=== PATIENT | female | born 1935 | race Caucasian/White ===

== ENCOUNTER 2017-03-17 16:09 | Emergency (ER) | payer MEDICARE ==
[~2017-03-17] VITALS: Ht 165.1 cm; Wt 83.9 kg
--- OUTSIDE RECORDS SUMMARY | ~2017-03-17 | XMS ---
Demographics + + + | Address | [address] | | | [address] | | | [place] [address] | + + + | Preferred Language | Unknown | + + + | Marital Status | Unknown | + + + | Bahai Affiliation | Unknown | + + + | Race | Unknown | + + + | Ethnic Group | Unknown | + + + Author + + + | Author | [facility] | + + + | Organization | [facility] | + + + | Address | 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 | | | | | | | | NOS | | | | | | +---------+ + + +--------+ + + | Problem | Other | 719.91 | | | Active | [id number] | | | specified | | | | | | | | disorder | | | | | | | | of joint | | | | | | | | NOS, | | | | | | | | shoulder | | | | | | +---------+ + + +--------+ + + | Problem | CAD | 414.00 | | | Active | [id number] | | | (coronary | | | | | | | | artery | | | | | | | | disease) | | | | | | +---------+ + + +--------+ + + | Problem | UTI (lower | 599.0 | | | Active | [id number] | | | urinary | | | | | | | | tract | | | | | | | | infection) | | | | | | +---------+ + + +--------+ + + | Problem | HTN | 401.9 | | | Active | [id number] | +---------+ + + +--------+ + + | Problem | CAD, | 414.01 | | | Active | [id number] | | | CORONARY | | | | | 107 | | | ART. 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
[~2017-03-17 16:09] MED LIST: ALLOPURINOL100 MG PO; ASPIRIN EC81 MG PO; ATENOLOL100 MG PO; ATIVAN0.5 MG PO; CITALOPRAM HBR20 MG PO; CLOPIDOGREL75 MG PO; DIOVAN160 MG PO; ISOSORBIDE DINI20 MG PO; KLOR-CON M1010 MEQ PO; LASIX20 MG PO; LEVOTHYROXINE100 MCG PO; LIPITOR40 MG PO; NITROGLYCERIN0.4 MG SL; NORVASC5 MG PO; PANTOPRAZOLE SO40 MG PO; PRAVASTATIN SOD20 MG PO; ROCALTROL0.25 MCG PO; ULTRAM50 MG PO; VITAMIN D31000 UNI1 PO; VITAMIN D32000 UNIT PO
--- NOTE | 2017-03-18 09:56 | EKG ---
[facility] [address] [facility] [place] [address] Signed Atrial fibrillation Marked ST abnormality, possible lateral subendocardial injury Abnormal ECG When compared with ECG of 27-SEP-2016 11:29, Atrial fibrillation has replaced Sinus rhythm Vent. rate has increased BY 33 BPM T wave inversion less evident in Inferior leads Confirmed by EMILIANO VENEGAS MD ([id number]) on 03/18/2017 9:56:19 AM Electronically Signed By: EMILIANO VENEGAS MD 03/18/17 0956 PATIENT NAME: GIULIA TILLEY SIVAKUMAR Electrocardiogram DATE OF : 35 PHYSICIAN: EMILIANO VENEGAS MD REPORT #: [id number] REPORT IS CONFIDENTIAL AND NOT TO BE RELEASED WITHOUT AUTHORIZATION
== END 2017-03-17 20:16 | disposition home or self-care (01) ==
LOC: ED 16:09
DX: I48.91 Unspecified atrial fibrillation (principal); I25.10 Atherosclerotic heart disease of native coronary artery without angina pectoris; I10 Essential (primary) hypertension; Z90.710 Acquired absence of both cervix and uterus; Z95.5 Presence of coronary angioplasty implant and graft; Z88.5 Allergy status to narcotic agent; Z79.899 Other long term (current) drug therapy; Z79.82 Long term (current) use of aspirin
CPT/HCPCS: 36415; 71020; 80053; 83735; 83880; 84484; 85025; 93005; 93010; 96374; 99284

== ENCOUNTER 2017-03-29 10:45 | Emergency (ER) | payer MEDICARE ==
[~2017-03-29] VITALS: Ht 165.1 cm; Wt 83.9 kg
[2017-03-29] MEDS ORDERED: ELIQUIS5 MG PO (11:26)
[2017-03-29] MEDS ORDERED: BISOPROLOL FUMAR5 MG PO (11:28)
[2017-03-29] MEDS ORDERED: ATIVAN1 MG PO (12:45)
--- NOTE | 2017-03-29 22:52 | EKG ---
[facility] [address] [facility] [place] [address] Signed Atrial fibrillation with premature ventricular or aberrantly conducted complexes ST \T\ T wave abnormality, consider inferior ischemia ST \T\ T wave abnormality, consider anterolateral ischemia Abnormal ECG When compared with ECG of 17-MAR-2017 16:19, T wave inversion more evident in Inferior leads T wave inversion now evident in Anterior leads Confirmed by EMILIANO VENEGAS MD ([id number]) on 03/29/2017 10:52:28 PM Electronically Signed By: EMILIANO VENEGAS MD 03/29/17 2252 PATIENT NAME: GIULIA TILLEY SIVAKUMAR Electrocardiogram DATE OF : 35 PHYSICIAN: EMILIANO VENEGAS MD REPORT #: [id number] REPORT IS CONFIDENTIAL AND NOT TO BE RELEASED WITHOUT AUTHORIZATION
== END 2017-03-29 14:30 | disposition home or self-care (01) ==
LOC: ED 10:45
DX: F41.9 Anxiety disorder, unspecified (principal); I10 Essential (primary) hypertension; Z95.5 Presence of coronary angioplasty implant and graft; Z90.710 Acquired absence of both cervix and uterus; Z88.5 Allergy status to narcotic agent; Z79.899 Other long term (current) drug therapy
CPT/HCPCS: 71010; 80053; 83880; 84484; 85025; 96374; 99283; J2060

== ENCOUNTER 2017-10-07 07:56 | Emergency (ER) | payer MEDICARE ==
[~2017-10-07] VITALS: Ht 165.1 cm; Wt 83.9 kg
[~2017-10-07 07:56] MED LIST changes: +ATIVAN1 MG PO; +BISOPROLOL FUMAR5 MG PO; +ELIQUIS5 MG PO
--- NOTE | 2017-10-07 22:23 | EKG ---
[facility] [address] [facility] [place] [address] \T\ T wave abnormality, consider inferior ischemia ST \T\ T wave abnormality, consider anterolateral ischemia Abnormal ECG When compared with ECG of 29-MAR-2017 10:49, No significant change was found Confirmed by MALU MANN MD ([id number]) on 10/07/2017 10:23:17 PM Electronically Signed By: MALU MANN MD 10/07/17 2223 PATIENT NAME: GIULIA TILLEY SIVAKUMAR Electrocardiogram DATE OF : 35 PHYSICIAN: MALU MANN MD REPORT #: [id number] REPORT IS CONFIDENTIAL AND NOT TO BE RELEASED WITHOUT AUTHORIZATION
== END 2017-10-07 10:35 | disposition home or self-care (01) ==
LOC: ED 07:56
PROC: 0T9B70Z Drainage of Bladder with Drainage Device, Via Natural or Artificial Opening (ICD-10-PCS; principal; 2017-10-07)
DX: E86.0 Dehydration (principal); R53.1 Weakness; I10 Essential (primary) hypertension; Z88.5 Allergy status to narcotic agent; Z79.899 Other long term (current) drug therapy; Z79.01 Long term (current) use of anticoagulants
CPT/HCPCS: 51701; 71045; 80053; 81001; 84484; 85025; 85610; 85730; 93005; 93010; 96360; 99283; J7030